=== PATIENT | male | born 1995 | race Caucasian/White ===

== ENCOUNTER 2017-09-02 07:12 | Emergency (ER) | payer BC ==
[~2017-09-02] VITALS: Ht 182.9 cm; Wt 63.4 kg
[2017-09-02 07:14] VITALS: TEMP 36.7; Ht 182.9 cm; Wt 63.4 kg
--- NOTE | 2017-09-02 08:25 | DIAGNOSTIC IMAGING REPORT ---
R FINGER(S) MIN 2 VIEWS ROUTINE CLINICAL HISTORY: crush injury distal right thumb trauma. Pain. COMPARISON: None. DISCUSSION: The bones and joint spaces appear intact. There is no evidence of fracture, dislocation or bony disease. There is no evidence for soft tissue swelling. IMPRESSION: Negative study. The above report was generated using voice recognition software. It may contain grammatical, syntax or spelling errors. Electronically signed by: Yfn Brasher M.D. 09/02/2017 8:24 AM Dictated Date/Time: 09/02/2017 8:24 AM
[2017-09-02 08:40] VITALS: BP 118/67; PULSE 67; O2SAT 97
--- NOTE | 2017-09-02 13:48 | EMERGENCY ROOM VISIT NOTE ---
History Report prepared by Arabella: Gregory Wagner Under the Supervision of: Dr. Mt Deleon M.D. 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 Patient states that the swelling worsened throughout the night. He adds that a friend tried to drain the thumb but it only temporally relieved the swelling. Patient states that he took ibuprofen for the pain. Pt denies other extremity injury, fevers, numbness, weakness, open wounds, or other complaints. Source of History: patient Onset: 8 hours ago Position: finger(s) (Right thumb) Timing: worsening Modifying Factors (Relieving): ibuprofen Review of Systems See HPI for pertinent positives and negatives. A total of six systems were reviewed and were otherwise negative. Past Medical & Surgical Medical Problems: (1) Broken collarbone (2) Broken toe Family History Cancer Social History Smoking Status: Never Smoker Occupation Status: [employer] student Current/Historical Medications No Active Prescriptions or Reported Meds Allergies Coded Allergies: No Known Allergies (Unverified , 09/02/17) Physical Exam Vital Signs Date Time Temp Pulse Resp B/P (MAP) Pulse Ox O2 Delivery O2 Flow Rate FiO2 09/02/17 08:40 67 20 118/67 97 Room Air 09/02/17 07:14 36.7 75 18 126/72 100 Room Air Physical Exam GENERAL: Awake, alert, well-appearing, in no distress EYES: Normal conjunctiva. Sclera non-icteric. NECK: Supple. No nuchal rigidity. FROM. No masses. GI: Soft, non-distended. No tenderness to palpation. No rebound or guarding. No masses. RECTAL: Deferred. MUSCULOSKELETAL: Tenderness to distal aspect of right thumb. Subungual hematoma present over the proximal nail. Rest of hand is atraumatic. No cellulitis. No joint edema. Normal range of motion of the thumb. NEURO: Normal sensorium. No sensory or motor deficits noted. SKIN: No rash or jaundice noted. Medical Decision & Procedures ER Provider Diagnostic Interpretation: Radiology results as stated below per my review and radiologist interpretation: R FINGER(S) MIN 2 VIEWS ROUTINE CLINICAL HISTORY: crush injury distal right thumb trauma. Pain. COMPARISON: None. DISCUSSION: The bones and joint spaces appear intact. There is no evidence of fracture, dislocation or bony disease. There is no evidence for soft tissue swelling. IMPRESSION: Negative study. The above report was generated using voice recognition software. It may contain grammatical, syntax or spelling errors. Electronically signed by: Yfn Brasher M.D. 09/02/2017 8:24 AM Procedure Subungual hematoma trephination: The risks and benefits were explained to the patient and verbal consent was obtained. The toe nail was prepped and the subungual hematoma was drained with cautery device and an 18-gauge needle in the standard fashion. No complications. A pressure dressing was applied. ED Course 0730: The patient was evaluated in room A10. A complete history and physical exam was performed. 0856: I reevaluated the patient. Discussed results and discharge instructions. He verbalized understanding and agreement. The patient is ready for discharge. Medical Decision Triage Nursing notes reviewed and agree them. The patient's history was concerning for traumatic injury. Differential diagnosis: Etiologies such as soft tissue injury, subungual hematoma, fracture, dislocation , neurovascular compromise, infection, as well as others were entertained. Physical examination: Consistent with an isolated thumb injury. ER treatment provided: Patient declined analgesia Nail trephination On reassessment the patient felt better. Diagnostics interpreted by me: Imaging studies: Xrays as above. The patient has a subungual hematoma. His nail is still attached relatively well. He took most of the injury at the nail matrix. He has been having some oozing that is continued from his attempts at trephination at home. I did discuss the possibility of a nailbed laceration with him. As he has a significant attachment still present removing the nail and potential associated issues with that seem to be more than is necessary at this time. With draining the hematoma and a pressure dressing that he will use temporarily the patient felt better. He will use ibuprofen or Tylenol at home. If he worsens he will be back. X-ray imaging did not reveal any evidence of fracture. There was a small punctate radiopaque foreign body noted around the nail on the x-ray. This was less than 1 mm big. I could not find any present on examination. The patient was informed. He was educated on signs of infection. The patient was also informed that he will likely have a deformed nail in the future and that this nail will fall off. By the evaluation outlined above emergent etiologies such as fracture, dislocation, neurovascular compromise, compartment syndrome, infections, as well as others were deemed relatively unlikely. The patient was informed about the findings as listed above. All questions were answered and he was pleased with the treatment. Return instructions were outlined and the patient was discharged in stable condition. Referral: The patient was referred to their primary care physician in 2 to 3 days for a recheck of your current condition. Medication Reconcilliation Current Medication List: was personally reviewed by me Blood Pressure Screening Patient's blood pressure: Normal blood pressure Blood pressure disposition: Did not require urgent referral Impression Primary Impression: Subungual hematoma Additional Impression: Crushing injury of right thumb Scribe Attestation The scribe's documentation has been prepared under my direction and personally reviewed by me in its entirety. I confirm that the note above accurately reflects all work, treatment, procedures, and medical decision making performed by me. Departure Information Dispostion Home / Self-Care Prescriptions No Active Prescriptions or Reported Meds Referrals No Doctor, Assigned (PCP) Forms HOME CARE DOCUMENTATION FORM, IMPORTANT VISIT INFORMATION, WORK / SCHOOL INSTRUCTIONS Patient Instructions ED Hematoma Subungual, My [facility] Additional Instructions WOUND CARE INSTRUCTIONS: Elevate your injury as much as possible. Remove the pressure dressing applied at 9:30 AM today, when you return home. Tylenol: Take 1000 mg every 6 hours as needed for pain. Do not take more than 3000 mg in a 24 hour period. And/or Ibuprofen(Motrin, Advil) may be used for fever or pain. Use 600mg every six hours as needed. Take with food. Avoid using more than 2400mg in a 24 hour period. Do not use 2400mg per day for more than three consecutive days without physician direction. Prolonged inappropriate use can lead to stomach upset or ulcers. Apply direct pressure for any bleeding. Used to bandaging technique as discussed in the ER. Return to the ER immediately for spreading redness, fevers, pus-like drainage, severe pain, or as needed. Problem Qualifiers
== END 2017-09-02 08:58 | disposition home or self-care (01) ==
LOC: C.EDB 07:13 → C.EDA 08:58
DX: S67.01XA Crushing injury of right thumb, initial encounter (principal); S60.011A Contusion of right thumb without damage to nail, initial encounter; W23.0XXA Caught, crushed, jammed, or pinched between moving objects, initial encounter; Y92.89 Other specified places as the place of occurrence of the external cause